=== PATIENT | female | born 1995 | race African-American/Black ===

== ENCOUNTER 2019-05-15 13:20 | Observation (INO) | payer OTHER ==
[2019-05-15] MEDS ORDERED: Ondansetron INJ* 2 MG/ML VIAL IV ONE ×2 (13:46→17:19)
[2019-05-15] MEDS ORDERED: HYDROmorphone INJ1* 1 MG/ML SYRINGE IV SLOW PU ONE ×2 (13:46→17:19)
[2019-05-15] MEDS ORDERED: NS 0.9% 1000 ML** 1,000 ML IV ONE (13:46)
--- NOTE | 2019-05-15 13:55 | ED ---
GI/ HPI - HPI Summary HPI Summary: Patient is a 23 y/o F who had vaginal delivery of baby on 05/06/19 presenting to [facility] with complaints of N/V and RLQ pain. She reports pain onset 05/14/19 in the evening. Pain worsened overnight and into this morning, 05/15/19. Patient endorses nausea and reports onset of emesis this morning. Some light vaginal bleeding is endorsed as well. Pain is characterized as a cramping sensation and has been constant since onset. On triage, pain is rated 10/10, nothing is noted to aggravate/alleviate Sx. Radiation of pain towards her right pelvic area is noted. She took two tablets of Tylenol around 1015 today. PSHx of foot surgery reported. Home medications and allergies are reviewed. - History of Current Complaint Chief Complaint: EDAbdPain Time Seen by Provider: 05/15/19 13:37 Stated Complaint: CRAMPS Hx Obtained From: Patient Onset/Duration: Started Hours Ago, Still Present, Worse Since Timing: Constant, Lasting Hours Severity: Severe Current Severity: Severe Pain Intensity: 10 Location of Pain: RLQ Pain Characteristics: Cramping Pain Radiates to: Inguinal - right pelvic area Associated Signs and Symptoms: Positive: Nausea, Vomiting, Abdominal Pain Additional Signs & Symptoms: Positive: Vaginal Bleeding Aggravating Factor(s): Nothing Alleviating Factor(s): Nothing - Allergy/Home Medications Allergies/Adverse Reactions: Allergies Allergy/AdvReac Type Severity Reaction Status Date / Time No Known Allergies Allergy Verified 05/15/19 13:23 Home Medications: Home Medications NK [No Home Medications Reported] 05/15/19 [History Confirmed 05/15/19] PMH/Surg Hx/FS Hx/Imm Hx Sensory History: Denies: Hx Legally Blind, Hx Deafness Opthamlomology History: Denies: Hx Legally Blind EENT History: Denies: Hx Deafness Infectious Disease History: No Infectious Disease History: Denies: Traveled Outside the [place] in Last 30 Days - Family History Known Family History: Negative: Diabetes - Social History Alcohol Use: None Substance Use Type: Reports: None Smoking Status (MU): Former Smoker Review of Systems Negative: Fever - on vitals, temp is 98.9 F Positive: Abdominal Pain, Vomiting, Nausea All Other Systems Reviewed And Are Negative: Yes Physical Exam - Summary Physical Exam Summary: Appearance: The patient is well-nourished in no acute distress and in no acute pain. Skin: The skin is warm and dry, and skin color reflects adequate perfusion. HEENT: The head is normocephalic and atraumatic. The pupils are equal and reactive. The conjunctivae are clear and without drainage. Nares are patent and without drainage. Mouth reveals moist mucous membranes, and the throat is without erythema and exudate. The external ears are intact. The ear canals are patent and without drainage. The tympanic membranes are intact. Neck: The neck is supple with full range of motion and non-tender. There are no carotid bruits. There is no neck vein distension. Respiratory: Chest is non-tender. Lungs are clear to auscultation and breath sounds are symmetrical and equal. Cardiovascular: Heart is regular rate and rhythm. There is no murmur or rub auscultated. There is no peripheral edema and pulses are symmetrical and equal. Abdomen: Tenderness of the RLQ and right periumbilical area noted. The abdomen is soft. There are normal bowel sounds heard in all four quadrants and there is no organomegaly palpated. Musculoskeletal: There is no back tenderness noted. Extremities are non-tender with full range of motion. There is good capillary refill. There is no peripheral edema or calf tenderness elicited. Neurological: Patient is alert and oriented to person, place and time. The patient has symmetrical motor strength in all four extremities. Cranial nerves are grossly intact. Deep tendon reflexes are symmetrical and equal in all four extremities. Psychiatric: The patient has an appropriate affect and does not exhibit any anxiety or depression. Triage Information Reviewed: Yes Vital Signs On Initial Exam: Initial Vitals Temp Pulse Resp BP Pulse Ox 98.9 F 65 16 148/100 99 05/15/19 13:20 05/15/19 13:20 05/15/19 13:20 05/15/19 13:20 05/15/19 13:20 Vital Signs Reviewed: Yes Procedures - Sedation Patient Received Moderate/Deep Sedation with Procedure: No Diagnostics - Vital Signs Vital Signs Temp Pulse Resp BP Pulse Ox 05/15/19 13:20 98.9 F 65 16 148/100 99 - Laboratory Result Diagrams: 05/15/19 13:55 05/15/19 13:54 Lab Statement: Any lab studies that have been ordered have been reviewed, and results considered in the medical decision making process. - CT CT ABD/PEL CT Interpretation Completed By: Radiologist Summary of CT Findings: IMPRESSION: 1. ENLARGED UTERUS CONSISTENT WITH THE RECENT STATE. 2. THERE IS DIFFUSE EDEMA OF THE SMALL BOWEL MESENTERY WITH A TRACE AMOUNT OF ASCITES OF. UNCERTAIN ETIOLOGY. 3. TRACE BILATERAL PLEURAL EFFUSIONS. THIS REPORT WAS REVIEWED BY ED PHYSICIAN. Re-Evaluation - Re-Evaluation First Eval Re-Evaluation Time: 17:17 Comment: Patient reports continued pain. Workup was discussed. Admission discussed, she is agreeable with this. GIGU Course/Dx - Course Course Of Treatment: Ms. Knutson presented 9 days from a full-term spontaneous vaginal delivery. She was doing fine until yesterday when she began to have some right lower quadrant pain. She had a normal appetite at that time but this morning the pain worsened and she vomited once. She comes in complaining of severe pain that comes and waves but never goes away completely she denies any change in her bowels or bladder. She is only spotting a little bit still. She was given pain medications while labs were obtained. She was afebrile, nontoxic in appearance and had stable vital signs but clearly was in pain. Her labs returned within normal limits aside from a very marginal elevation of alk phosphatase and CRP which is normal the state. She did not get much pain relief from Dilaudid and Zofran and therefore CT scan was obtained and she was given a second dose pain medication. CT scan revealed only diffuse edema of the small bowel mesentery. I reviewed this with Dr. Blue felt that this was not related to her recent . I reviewed it with Dr. Pratt who looked at the CT scan and was not clear about the significance of this finding. I reviewed it with Dr. Boggs who felt that this could be a normal finding or could represent infection or inflammation. The patient continued to have significant pain and I spoke with Dr. Navarrete concerning my recommendation that she be observed overnight for pain control and have a repeat CBC in the morning to make sure that this is not an infectious process that's early. - Diagnoses Provider Diagnoses: Abdominal pain - Physician Notifications Discussed Care Of Patient With: Magno Gómez Time Discussed With Above Provider: 16:28 Instructed by Provider To: Other - Patient's case was discussed with Dr. Gómez , CT reviewed. Dr. Gómez states that CT results are likely not related to patient's recent delivery. GI consult to be obtained. 1703 - Patient's case was discussed with Dr. Cabezas. Surgical consult to be obtained. 1712 - Dr. Pratt was called and case discussed; patient's case to be discussed with radiologist. 1715 - Dr. Anand was called with regards to CT, differential discussed. 1805 - Patient's case discussed with Dr. Navarrete, hospitalist services to evaluate the patient. 1853 - Patient admitted to [facility], admit orders placed at this time. Discharge ED - Sign-Out/Discharge Documenting (check all that apply): Patient Departure - admit - Discharge Plan Condition: Stable Disposition: ADMITTED TO [facility] Referrals: No Primary Care Phys,NOPCP [Primary Care Provider] - - Billing Disposition and Condition Condition: STABLE Disposition: Admitted to [facility] - Attestation Statements Document Initiated by Shellie: Yes Documenting Scribe: VERITO CARPIO Provider For Whom Scribe is Documenting (Include Credential): SILVINO BECKER MD Scribe Attestation: IVERITO, scribed for SILVINO BECKER MD on 05/15/19 at 1950. Scribe Documentation Reviewed: Yes Provider Attestation: The documentation as recorded by the VERITO bynum accurately reflects the service I personally performed and the decisions made by me, SILVINO BECKER MD Status of Scribe Document: Viewed
[2019-05-15 14:03] LABS: ABS Lymphocytes 0.8 10^3/ul (1.0-4.8); ABS Monocytes 0.5 10^3/ul (0-0.8); ABS Neutrophils 7.6 10^3/ul (1.5-7.7); Eosinophil % 0.1 %; Hematocrit 36 % (35-47); Hemoglobin 11.7 g/dL (12.0-16.0); Lymphocyte % 8.5 %; Mean Corpuscular HGB Conc 33 g/dL (31-36); Mean Corpuscular Hemoglobin 29 pg (27-31); Mean Corpuscular Volume 89 fL (80-97); Platelet Count 382 10^3/uL (150-450); Red Cell Distribution Width 15 % (10-15); White Blood Count 8.9 10^3/uL (3.5-10.8)
[2019-05-15 14:20] LABS: ALT 17 U/L (7-52); AST 16 U/L (13-39); Albumin 3.9 g/dL (3.2-5.2); Albumin/Globulin Ratio 1.2 (1-3); Alkaline Phosphatase 185 U/L (34-104); Anion Gap 8 mmol/L (2-11); BUN/Creatinine Ratio 10.3 (8-20); Blood Urea Nitrogen 7 mg/dL (6-24); C Reactive Protein 57.48 mg/L (<8.01); CO2 Carbon Dioxide 24 mmol/L (22-32); Calcium 9.1 mg/dL (8.6-10.3); Chloride 108 mmol/L (101-111); EGFR African American 130.9 (>60); EGFR Non-African American 108.2 (>60); Globulin 3.3 g/dL (2-4); Glucose 90 mg/dL (70-100); Potassium 3.9 mmol/L (3.5-5.0); Sodium 140 mmol/L (135-145); Total Protein 7.2 g/dL (6.4-8.9)
[2019-05-15] MEDS ORDERED: oxyCODONE/Acetamin 5/325 MG* TAB PO PRN ×2 (18:48→18:54)
[2019-05-15] MEDS ORDERED: Ondansetron INJ* 2 MG/ML VIAL IV PRN (18:56)
[2019-05-15] MEDS ORDERED: Acetaminophen TAB* 325 MG PO PRN (18:56)
[2019-05-15 18:58] LABS: Amylase 52 U/L (29-103)
[2019-05-15] MEDS ORDERED: Iohexol 300* (CONTRAST) 10 ML SDV IV ONE (19:24)
[2019-05-15] MEDS: NS 0.9% 1000 ML** 1,000 ML IV SCH (20:27)
[2019-05-15] MEDS: oxyCODONE/Acetamin 5/325 MG* TAB PO PRN (20:31)
--- NOTE | 2019-05-15 20:34 | HP ---
HOSPITAL MEDICINE HISTORY AND PHYSICAL: DATE OF ADMISSION: 05/15/19. PRIMARY CARE PHYSICIAN: None. ATTENDING PHYSICIAN: Dr. Nancy Navarrete * (dictation provided by Chandni Bryant NP ). CHIEF COMPLAINT: Abdominal pain. HISTORY OF PRESENT ILLNESS: Ms. Knutson is a 23-year-old female who just gave to her son on 05/06/19 via vaginal delivery. She states it was an uneventful and her son weighed 7 pounds 10 ounces. She gave in [facility] and is here in [place] visiting her boyfriend's family. She states she had been recovering well with no concerns whatsoever. She has been breast feeding her child. Yesterday, at 3 p.m., she developed a sudden onset of right-sided abdominal pain. She describes it as feeling like a contraction, it was constant, it lasted throughout the day yesterday and into the evening. She had difficulty sleeping. This morning the pain was so severe that she was vomiting and she ultimately decided to come to the emergency room for evaluation. She states, otherwise she has been healthy with no chronic health conditions. She is not on any medications. In the emergency room, Ms. Knutson had persistent right-sided mid to lower quadrant pain. There was pain with palpation. She has been given multiple doses of intravenous Dilaudid. She went on for a CT abdomen/pelvis which showed "enlarged uterus" consistent with recent state. There is a diffuse edema of the small bowel mesentry with a trace amount of ascites of uncertain etiology. Trace bilateral pleural effusions. Her lactic acid is normal. Her white blood cell count is normal. Remainder of her labs are normal. She does have a mildly elevated CRP to 57.48. PAST MEDICAL HISTORY: state with delivery on 05/10/19. MEDICATIONS: None. FAMILY HISTORY: The patient reports that her mother and father are alive and well. Her father's parents had heart disease and her mother's father had diabetes. SOCIAL HISTORY: The patient is not a smoker. She drinks alcohol only very occasionally. No reported drug use. She states that her mother will be her healthcare proxy, . Also has a second number for the mom, which is . REVIEW OF SYSTEMS: A 14-point review of systems was completed with Ms. Knutson and all those not mentioned above were negative. PHYSICAL EXAMINATION GENERAL: Ms. Knutson is lying in the bed. She is in no acute distress. VITAL SIGNS: Temperature 98.9, pulse rate 54, respiratory rate 16, O2 saturation 99% on room air, blood pressure 137/74. LUNGS: Clear to auscultation bilaterally with no accessory muscle use and good aeration. HEART: S1, S2. No murmur, rub, or gallop and regular. ABDOMEN: Soft with bowel sounds positive x4. The patient has tenderness in the mid to right lower quadrant to mild palpation, no rebound, no guarding. EXTREMITIES: No cyanosis or edema. NEURO: She is alert. She is oriented x3. She moves all extremities equally. There is no facial asymmetry or focal weakness. Extraocular movements are intact. SKIN: Intact. DIAGNOSTIC STUDIES/LAB DATA: Sodium 140, potassium 3.9, chloride 108, serum bicarbonate 24, BUN 7, creatinine 0.68, glucose 90, lactic acid 0.6. WBC 8.9, hemoglobin 11.7, hematocrit 36, platelet count 382,000. CT abdomen and pelvis is as per above. ASSESSMENT: Ms. Knutson is a 23-year-old female, recent with of her son on 05/10/19 via vaginal delivery who presents to the hospital with sudden onset of right-sided pain yesterday at 3 p.m., found to have concerning finding of mesenteric edema on CT scan. Our plans are for observation in the hospital for the followin. Abdominal pain. The patient does have mesenteric edema noted on the small bowel on CT. The ED reviewed the case broadly over the phone with GI, Surgery, and Radiology and there is no clear identified etiology at this point. There is some concern that perhaps she has a mesenteric venous thrombosis and we will repeat CT scan with IV and oral contrast, after speaking with Dr. Anand who reports that CT would be a better study than an MRV. In the meantime, the patient will have pain medications p.r.n. She will have IV fluids. She will have Zofran p.r.n. 2. Nine days . Plan to continue supportive care. 3. Code status is full code. 4. DVT prophylaxis. SCDs. TIME SPENT: Approximately 60 minutes were spent on the admission of this patient, more than half the time was spent with the patient at the bedside reviewing the events leading up to this hospitalization, performing the physical examination, and reviewing my plan of care. CHANDNI BRYANT NP [id number]/[facility] #: [id number] MTDTeresa
[2019-05-15] MEDS: HYDROmorphone INJ1* 1 MG/ML SYRINGE IV PRN (21:43)
[2019-05-16] MEDS: HYDROmorphone INJ1* 1 MG/ML SYRINGE IV PRN ×2 (02:40→07:24)
[2019-05-16 05:00] LABS: ABS Basophils 0.1 10^3/ul (0-0.2); ABS Lymphocytes 1.6 10^3/ul (1.0-4.8); ABS Monocytes 0.7 10^3/ul (0-0.8); ABS Neutrophils 5.2 10^3/ul (1.5-7.7); Eosinophil % 0.5 %; Hematocrit 31 % (35-47); Hemoglobin 10.4 g/dL (12.0-16.0); Lymphocyte % 21.3 %; Mean Corpuscular HGB Conc 33 g/dL (31-36); Mean Corpuscular Hemoglobin 30 pg (27-31); Mean Corpuscular Volume 91 fL (80-97); Platelet Count 313 10^3/uL (150-450); Red Blood Count 3.45 10^6 /uL (3.70-4.87); Red Cell Distribution Width 15 % (10-15); White Blood Count 7.7 10^3/uL (3.5-10.8)
[2019-05-16 05:24] LABS: BUN/Creatinine Ratio 9.9 (8-20); EGFR African American 124.6 (>60); EGFR Non-African American 102.9 (>60)
--- NOTE | 2019-05-16 09:05 | PN ---
Subjective Date of Service: 05/16/19 Interval History: Pt continues to have severe RLQ abdominal pain. It is essentially unchanged from prior. She states the only thing that has help her pain has been the dilaudid. She does feel hungry this AM. She tells me she has been having fairly normal sized and consistency stools. No diarrhea. Her lochia has not been large volume. She denies any fever or shaking chills. Objective Active Medications: Acetaminophen (Tylenol Tab*) 650 mg PO Q6H PRN PRN Reason: PAIN - MILD Hydromorphone HCl (Dilaudid Inj1s*) 1 mg IV Q4H PRN PRN Reason: severe pain Last Admin: 05/16/19 07:24 Dose: 1 mg Sodium Chloride (Ns 0.9% 1000 Ml) 1,000 mls @ 100 mls/hr IV PER RATE NINI Last Admin: 05/15/19 20:27 Dose: 100 mls/hr Ondansetron HCl (Zofran Inj*) 4 mg IV Q6H PRN PRN Reason: NAUSEA Oxycodone/Acetaminophen (Percocet 5/325 Tab*) 1 tab PO Q4H PRN PRN Reason: PAIN - MODERATE Last Admin: 05/15/19 20:31 Dose: 1 tab Vital Signs - 8 hr 05/16/19 05/16/19 05/16/19 02:40 03:20 03:40 Temperature 97.9 F Pulse Rate 57 Respiratory 17 16 16 Rate Blood Pressure 110/66 (mmHg) O2 Sat by Pulse 100 Oximetry 05/16/19 05/16/19 07:19 07:24 Temperature 97.9 F Pulse Rate 64 Respiratory 16 16 Rate Blood Pressure 122/64 (mmHg) O2 Sat by Pulse 100 Oximetry Oxygen Devices in Use Now: None Appearance: Young female lying in bed, NAD Eyes: No Scleral Icterus Ears/Nose/Mouth/Throat: Mucous Membranes Moist Respiratory: Symmetrical Chest Expansion and Respiratory Effort, Clear to Auscultation - anteriorly Cardiovascular: NL Sounds; No Murmurs; No JVD, RRR, No Edema Abdominal: - - BS+, soft, ND, enlarged uterus palpated, tender to palpation in the RLQ Extremities: No Clubbing, Cyanosis Skin: No Nodules or Sclerosis Neurological: Alert and Oriented x 3 Result Diagrams: 05/16/19 04:49 05/16/19 04:49 Assess/Plan/Problems-Billing Miss Knutson is a 23 yo F who presented to the ER 9 days with c/o severe RLQ abdominal pain. CT abd/pelvis with and without contrast reveals diffuse mesenteric edema. - Patient Problems (1) Abdominal pain Current Visit: Yes Status: Acute Code(s): R10.9 - UNSPECIFIED ABDOMINAL PAIN SNOMED Code(s): 95804491 Comment: Etiology of the abdominal pain is unclear. Diffuse mesenteric edema identified on CT scan. No evidence of mesenteric venous thrombosis. ? constipation. I spoke with Dr. Kramer who recommended sending testing for chlamydia and gonorrhea. Send urine drug screen. Dr. Kramer will be seeing the patient later today. (2) state Current Visit: Yes Status: Acute Code(s): Z39.2 - ENCOUNTER FOR ROUTINE FOLLOW-UP SNOMED Code(s): 37359371 Comment: Dr. Kramer to eval patient for above complaint. Pt is breast feeding and currently is pumping and dumping post IV contrast. (3) DVT prophylaxis Current Visit: Yes Status: Acute Code(s): Z29.9 - ENCOUNTER FOR PROPHYLACTIC MEASURES, UNSPECIFIED SNOMED Code(s): 341360741 Comment: ambulation, SCDs while in bed (4) Full code status Current Visit: Yes Status: Acute Code(s): Z78.9 - OTHER SPECIFIED HEALTH STATUS SNOMED Code(s): 449144798
[2019-05-16] MEDS: oxyCODONE/Acetamin 5/325 MG* TAB PO PRN (09:37)
[2019-05-16] MEDS: NS 0.9% 1000 ML** 1,000 ML IV SCH ×2 (09:42→14:54)
[2019-05-16 11:23] LABS: Urine Appearance Clear; Urine Bilirubin Negative (Negative); Urine Blood 3+ (Negative); Urine Color Yellow; Urine Glucose Negative (Negative); Urine Ketones 2+ (Negative); Urine Nitrite Negative (Negative); Urine Protein Negative (Negative); Urine Specific Gravity 1.025 (1.010-1.030); Urine Urobilinogen Negative (Negative)
[2019-05-16 11:29] LABS: Urine Bacteria Absent (Absent); Urine Red Blood Cell 2+(6-10/hpf) (Absent); Urine Squamous Epithelial Cell Present (Absent); Urine White Blood Cell 2+(11-20/hpf) (Absent)
[2019-05-16] MEDS ORDERED: Ibuprofen TAB* 600 MG ONE (11:57)
[2019-05-16] MEDS: Ibuprofen TAB* 600 MG PO PRN ×2 (11:59→17:42)
[2019-05-16 15:18] VITALS: BP 105/72
--- NOTE | 2019-05-16 17:28 | CONS ---
CONSULTATION NOTE: DATE OF CONSULT: 05/16/19 HISTORY OF PRESENT ILLNESS: The patient is a 23-year-old 2, para 1-0-1- 1, status post normal spontaneous vaginal delivery approximately 9 days ago. She had had an unremarkable course, had delivered in [facility], and was coming up here to visit and possibly relocate to the [facility]. While she was driving, she started to notice some discomfort on the right side of her abdomen and this increased with time. She presented to the emergency room and was admitted to the hospitalist service with right lower quadrant pain and tenderness requiring use of Dilaudid. The patient is actively and notes that with the pain actually intensified and then led up. The patient is hungry. Denies constipation or change in bowel habits and denies any fevers at home. The patient with a CT scan that reveals a right 5-cm fibroid lateral on the uterus. PAST MEDICAL HISTORY: Denies asthma or respiratory problems. Denies cardiovascular history. PAST [employer] REMOVER HISTORY: Unremarkable. Denies STIs. Denies recent sexual activity. OB HISTORY: Noted for normal spontaneous vaginal delivery in May of 2019, first trimester termination in 2014. MEDICATIONS: None. SOCIAL HISTORY: The patient denies any illicit drug use. Denies current alcohol consumption, and she is not a smoker. PHYSICAL EXAM: Vital Signs: Temp is 98.7, respiratory rate is 17, blood pressure 121/78, pulse rate is 95. Constitutional: Pleasant female, alert and oriented x3. Abdomen is scaphoid, nontender. Fundus palpates to below the umbilicus. Pinpoint tenderness on the right side of the uterus at location of fibroid. The patient concurs that this is her area of pain and discomfort. Lochia is minimal. Extremities are nontender without edema. LABORATORY DATA: WBC 7.7, hemoglobin 10.4, hematocrit 31, platelet count 313. Cultures blood, no growth x24 hours. C-reactive protein is 57.48. AST 16, ALT 17. Lactic acid 0.6. ASSESSMENT AND PLAN: The patient is a 23-year-old with right lower quadrant pain, 9 days , currently . The patient describes the pain exactly at the site of her fibroid. Most likely diagnosis is degenerating fibroid . The patient should begin anti-inflammatory, treatment will begin. Ibuprofen prescription has been started. Avoid use of narcotics at this point, and the patient can resume and nursing at this point in time. TIME SPENT: Length of time spent with the patient directly [id number] was greater than 20 minutes. [id number]/[facility] #: [id number] REJI
--- NOTE | 2019-05-18 00:18 | DS ---
DISCHARGE SUMMARY: DATE OF ADMISSION: 05/15/19 DATE OF DISCHARGE: 05/16/19 PRIMARY CARE PROVIDER: None, [facility] not in [place]. PRINCIPAL DIAGNOSES: 1. Probable degenerating fibroid leading to severe right lower quadrant abdominal pain. 2. Ten-day . DISCHARGE MEDICATIONS: 1. Ibuprofen 600 mg p.o. q.6 hours p.r.n. pain. 2. Tylenol 650 mg p.o. q.6 hours p.r.n. pain. HOSPITAL COURSE: Ms. Knutson is a 23-year-old female who presented to the emergency room at 9 days with complaints of severe right lower quadrant abdominal pain. She underwent CT scan without contrast in the emergency room that revealed diffuse mesenteric edema. The ER provider spoke with many providers in different specialities discussing the case. Ultimately, it was unclear as to why she developed this mesenteric edema. The hospitalist service was called to admit the patient. There was concern for possible mesenteric venous thrombosis. Because of this, she underwent contrasted CT scan of the abdomen and pelvis. This did not reveal any evidence of mesenteric venous thrombosis. It also did not help in identifying the source of her pain. The patient was admitted and received IV Dilaudid for pain control. On , the patient was seen in consultation by Dr. Kramer from [facility]. She felt that the patient's pain was likely secondary to a degenerating fibroid. It was recommended to stop narcotic pain management and utilize ibuprofen and Tylenol for pain control. The patient was concerned about going home due to her ongoing pain; however, it was recommended to go home and spend time with her new baby and use ibuprofen and Tylenol for pain management. She has been instructed to return to the emergency room for any fevers, chills, or worsened abdominal pain. FOLLOWUP CONCERNS: The patient is being discharged home today, 05/16/19. Activity level is as tolerated. Diet is regular. CONDITION ON DISCHARGE: Stable. TIME SPENT: Twenty five minutes was spent discharging this patient. [id number]/[facility] #: [id number] REJI
== END 2019-05-16 18:00 | disposition home or self-care (01) ==
LOC: ED 13:20 → SSU 18:45
PROVIDERS: ADMIT Hospitalist; ATTEND Hospitalist
DX: Z39.2 Encounter for routine postpartum follow-up (principal); R10.31 Right lower quadrant pain; R11.2 Nausea with vomiting, unspecified; Z87.891 Personal history of nicotine dependence
CPT/HCPCS: 36415; 74176; 74177; 80048; 80053; 81003; 81015; 82150; 83605; 83690; 85025; 86140; 87040; 87086; 96374; 96375; 96376; 99284; A9270-GY; G0378; J1170; J2405; Q9967